=== PATIENT | male | born 1985 | race Caucasian/White ===

== ENCOUNTER 2022-07-15 04:01 | Inpatient (IN) | payer SELFPAY ==
[2022-07-15 06:22] LABS: Amphetamine Screen,Urine Not Detected (NotDetected); Benzodiazepines Screen,Urine Not Detected (NotDetected); Cocaine Screen,Urine Not Detected (NotDetected); Opiate Screen,Urine Not Detected (NotDetected); Phencyclidine Screen,Urine Not Detected (NotDetected); Tricyclic Antidepressant,Urine Not Detected (NotDetected); Urn Cannabinoid Scrn Not Detected (NotDetected)
--- NOTE | 2022-07-15 06:22 | ED ---
General Adult HPI - General Source: patient, police, RN notes reviewed, old records reviewed Mode of arrival: ambulatory <Kevin Post - Last Filed: 07/15/22 06:19> <Wilbert Dove - Last Filed: 07/15/22 14:57> - General Chief complaint: Psychiatric Symptoms Stated complaint: petition Time Seen by Provider: 07/15/22 04:25 - History of Present Illness Initial comments: 37-year-old male with need for mental health evaluation. Patient admits to alcohol consumption. Superficial laceration to the left forearm. He was found by police with a knife in his vehicle. He states he has some issues that he is dealing with but is unwilling to elaborate on this. (Kevin Post) - Related Data Home Medications Medication Instructions Recorded Confirmed No Known Home Medications 07/15/22 07/15/22 Allergies Allergy/AdvReac Type Severity Reaction Status Date / Time proparacaine AdvReac Swelling Verified 07/15/22 11:28 Review of Systems ROS Other: All systems not noted in ROS Statement are negative. <Kevin Post - Last Filed: 07/15/22 06:19> ROS Other: All systems not noted in ROS Statement are negative. <Wilbert Dove - Last Filed: 07/15/22 14:57> ROS Statement: Those systems with pertinent positive or pertinent negative responses have been documented in the HPI. Past Medical History Past Medical History: No Reported History History of Any Multi-Drug Resistant Organisms: None Reported Past Surgical History: No Surgical Hx Reported Past Psychological History: No Psychological Hx Reported Smoking Status: Current every day smoker Past Alcohol Use History: Daily Past Drug Use History: None Reported <Kevin Post - Last Filed: 07/15/22 06:19> General Exam General appearance: alert, in no apparent distress, appears intoxicated Head exam: Present: atraumatic, normocephalic Eye exam: Present: normal appearance, PERRL Respiratory exam: Present: normal lung sounds bilaterally. Absent: respiratory distress, wheezes, rales Cardiovascular Exam: Present: regular rate, normal rhythm Extremities exam: Present: other (abrasion left forearm) Neurological exam: Present: alert, oriented X3 Psychiatric exam: Present: depressed, flat affect, suicidal ideation Skin exam: Present: warm, dry, intact. Absent: cyanosis, diaphoretic <Kevin Post - Last Filed: 07/15/22 06:19> Course <Kevin Post - Last Filed: 07/15/22 06:19> Vital Signs 07/15/22 07/15/22 07/15/22 05:12 10:00 14:15 Temperature 98 F 98 F 98.4 F Pulse Rate 85 81 52 L Pulse Rate [ Right Sitting] Respiratory 18 18 18 Rate Blood Pressure 138/96 134/88 115/71 Blood Pressure [Left Arm Sitting] O2 Sat by Pulse 98 98 100 Oximetry 07/15/22 14:20 Temperature 97.7 F Pulse Rate Pulse Rate [ 66 Right Sitting] Respiratory 18 Rate Blood Pressure Blood Pressure 134/89 [Left Arm Sitting] O2 Sat by Pulse 95 Oximetry - Reevaluation(s) Reevaluation #1: 07/15/22 06:21 clear for eps at 9am (Kevin Post) Reevaluation #2: 07/15/22 0700 Signed out at shift change to Dr. Dove (Kevin Post) Medical Decision Making <Wilbert Dove - Last Filed: 07/15/22 14:57> - Medical Decision Making Patient was signed out to me pending sobriety and EPS evaluation. EPS evaluated the patient when he was sober. Determined he does meet inpatient psychiatric criteria. Patient will be admitted to the inpatient psychiatry unit in stable condition. (Wilbert Dove) - Lab Data Lab Results 07/15/22 07/15/22 Range/Units 05:17 13:16 Urine Opiates Screen Not Detected (NotDetected) Ur Oxycodone Screen Not Detected (NotDetected) Urine Methadone Screen Not Detected (NotDetected) Ur Propoxyphene Screen Not Detected (NotDetected) Ur Barbiturates Screen Not Detected (NotDetected) U Tricyclic Antidepress Not Detected (NotDetected) Ur Phencyclidine Scrn Not Detected (NotDetected) Ur Amphetamines Screen Not Detected (NotDetected) U Methamphetamines Scrn Not Detected (NotDetected) U Benzodiazepines Scrn Not Detected (NotDetected) Urine Cocaine Screen Not Detected (NotDetected) U Marijuana (THC) Screen Not Detected (NotDetected) Coronavirus (PCR) Not Detected (Not Detectd) Disposition <eKvin Post - Last Filed: 07/15/22 06:19> <Wilbert Dove - Last Filed: 07/15/22 14:57> Clinical Impression: Encounter for psychiatric assessment Disposition: ADMITTED IP TO THIS HOSP Condition: Stable
[2022-07-15 06:23] LABS: Barbiturate Screen,Urine Not Detected (NotDetected); Methadone Screen, Urine Not Detected (NotDetected); Oxycodone Screen, Urine Not Detected (NotDetected)
[2022-07-15] MEDS ORDERED: LORazepam 1 MG TAB PO PRN ×2 (14:25→20:00)
[2022-07-15] MEDS ORDERED: MAGNESIUM HYDROXIDE 2,400 MG/10 ML CUP PO PRN ×2 (14:25→20:00)
[2022-07-15] MEDS ORDERED: ACETAMINOPHEN TAB 325 MG TAB PO PRN ×2 (14:25→20:00)
[2022-07-15] MEDS ORDERED: MAG HYDROX/AL HYDROX/SIMETH 30 ML CUP PO PRN ×2 (14:25→20:00)
[2022-07-15] MEDS ORDERED: HALOPERIDOL LACTATE 5 MG/ML 1 ML VIAL IM PRN ×2 (14:25→20:00)
[2022-07-15] MEDS ORDERED: LORazepam 2 MG/ML INJ IM PRN (14:33)
[2022-07-15] MEDS ORDERED: haloperidoL 5 MG TAB PO PRN (14:34)
--- NOTE | 2022-07-15 15:27 | P.HP ---
Psychiatric H&P - . H&P Date: 07/15/22 History & Physical: Allergies Allergy/AdvReac Type Severity Reaction Status Date / Time proparacaine AdvReac Swelling Verified 07/15/22 11:28 Vital Signs Temp 97.7 F 07/15/22 14:20 Pulse 66 07/15/22 14:20 Resp 18 07/15/22 14:20 BP 134/89 07/15/22 14:20 Pulse Ox 95 07/15/22 14:20 FiO2 Intake & Output 07/14/22 07/15/22 07/15/22 18:59 06:59 18:59 Weight 54.431 kg 58.8 kg Laboratory Last Values Urine Opiates Screen Not Detected (NotDetected) 07/15/22 05:17 Ur Oxycodone Screen Not Detected (NotDetected) 07/15/22 05:17 Urine Methadone Screen Not Detected (NotDetected) 07/15/22 05:17 Ur Propoxyphene Screen Not Detected (NotDetected) 07/15/22 05:17 Ur Barbiturates Screen Not Detected (NotDetected) 07/15/22 05:17 U Tricyclic Antidepress Not Detected (NotDetected) 07/15/22 05:17 Ur Phencyclidine Scrn Not Detected (NotDetected) 07/15/22 05:17 Ur Amphetamines Screen Not Detected (NotDetected) 07/15/22 05:17 U Methamphetamines Scrn Not Detected (NotDetected) 07/15/22 05:17 U Benzodiazepines Scrn Not Detected (NotDetected) 07/15/22 05:17 Urine Cocaine Screen Not Detected (NotDetected) 07/15/22 05:17 U Marijuana (THC) Screen Not Detected (NotDetected) 07/15/22 05:17 Coronavirus (PCR) Not Detected (Not Detectd) 07/15/22 13:16 07/15/22 15:07 History of present illness: Patient said he had a bad day at work and so he went home and had couple of drinks. Then he had an argument with his mother following which he made a superficial scratch sean on his left forearm with a knife. Then he went back to work. He said the police arrived at work and brought him here for admission. He is working full-time and denies any ongoing mental health issues. He broke up from his fiance of 7 years after an argument 3 months ago and came to live with his mother for the last 3 months. Apparently he has been having some arguments and disagreements with his mother. Even though he denied all problems, he agrees that he gets irritable and angry at times. He also reports that he has been an emotional person all his life and m ay get upset angry and engage in self abusive behavior. He used to cut himself when he was growing up whenever he was upset. He is also quite emotional. He said he has some difficulty in sleeping well at night and agreed to take Seroquel 50 mg at bedtime. Previous psychiatric history/alcohol and drug abuse: He was treated as an outpatient for"depression"when his child as a he was 17 at the time apparently he was treated for until he was 18 with Depakote Trileptal and Zyprexa he did not take any of these medication since then. As noted earlier he used to cut himself on forearms on numerous locations whenever he felt angry or upset. He has 27 tattoos and 2 piercings. He has been drinking alcohol since age 16. He used to drink up to fifth and a half to 2 per day in the past and he had one DUI. These days he just drinks only here and there. He [facility] for [facility]. He was also in [facility] one week when he was charged with attempted murder and he agreed for domestic assault and got out early. Social history: He was raised well by his parents. He was not abused. He was home schooled. He went to work at the age of 14 and did not get his high school diploma. 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 Currently he lives with his mother and thinks he can go back to live with her after discharge. He was living with his fianc for 7 years and raised her 4 or 5 children as his own. Apparently she is dating her coworker and does not want to see the patient anymore. He was not in the service. Previous medical history: He denies any major physical problems and is not ALLERGIC to any medication. However the chart is flag for ALLERGY/adverse effects from proparacaine. Family history: He said his mother had heart attack and father had or has a pacemaker put in. Mental status examination:: This is a white ambulatory male with well maintained mustache and rick he. He has good hygiene. He was pleasant and cooperative initially. However when he was told that we cannot discharge him today he became irate, used curse words and said he is not going to eat anything while he is here. He did not show any psychomotor agitation or retardation initially. However when he came to know that he cannot leave today he became agitated and somewhat hostile. His speech has been spontaneous and goal-directed. Mood was calm and euthymic initially and became angry and hostile later. Affect is increased in range. Denies current suicide and homicide thoughts. Denies hallucinations and delusional thinking. He is well oriented with good memory concentration and general fund of knowledge. Diagnostic impression: 1. Borderline personality disorder. 2. Alcohol use disorder moderate to severe. Strengths: Has a job, has a place to live and apparently supportive family. Weakness: Impulsive acting out behavior, anger management problems, alcohol use disorder. Treatment plan: He will have physical examination. He agreed to take 50 mg of Seroquel at night to help him sleep better. He will receive supervision, milieu therapy, group therapy, individual therapy, occupational therapy and recreational therapy. Discharge with outpatient follow-up.
--- NOTE | 2022-07-15 16:03 | P.CONS ---
History of Present Illness - Reason for Consult Consult date: 07/15/22 - History of Present Illness 37-year-old male with no significant past medical history presents ED for behavioral disturbance. He is being admitted to mental health unit for further management of symptoms. [facility] been consulted for medical management of this patient. Patient reports cough productive of clear sputum that has been ongoing for many years. He reports that his "lungs were not inflated" at . He reports smoking 3 packs of cigarettes daily for many years. He was previously on inhalers which she has not used in many years. He denies any headache, lower extremity edema, nausea or vomiting, fever chills, chest pain, shortness of breath, palpitations, changes in urination or bowel habits. No changes in appetite or weight. He denies any dizziness, numbness/weakness/tingling of the extremities. Patient reports binge drinking at times. He denies any history of alcohol withdrawal. He denies any illicit drug use. General: non toxic, no distress, appears at stated age Derm: warm, dry, abrasion over the left forearm Head: atraumatic, normocephalic, symmetric Eyes: EOMI, no lid lag, anicteric sclera Mouth: no lip lesion, mucus membranes moist Cardiovascular: S1S2 reg, no murmur, positive posterior tibial pulse bilateral, Lungs: Decreased breath sounds bilateral, no rhonchi, no rales , no accessory muscle use Abdominal: soft, nontender to palpation, no guarding, no appreciable organomegaly Ext: no gross muscle atrophy, no edema, no contractures Neuro: CN II-XI grossly intact, no focal neuro deficits Psych: Alert, oriented, appropriate affect #Chronic bronchitis #History of alcohol abuse #Smoker Patient reports a chronic cough ongoing for multiple years. He does smoke 3 packs of cigarettes daily. His oxygenation is mid to high 90s on room air. He will need to follow-up with his PCP in the outpatient setting for further workup of his cough. Patient denies any history of alcohol withdrawal. Continue to monitor. Patient has been offered a nicotine patch. CBC, CMP, hemoglobin A1c, lipid panel, TSH ordered. Thank you for this consultation. Please call [facility] additional questions or concerns. Past Medical History Past Medical History: No Reported History History of Any Multi-Drug Resistant Organisms: None Reported Past Surgical History: No Surgical Hx Reported Past Psychological History: No Psychological Hx Reported Smoking Status: Current every day smoker Past Alcohol Use History: Daily Past Drug Use History: None Reported Medications and Allergies Home Medications Medication Instructions Recorded Confirmed Type No Known Home Medications 07/15/22 07/15/22 History Allergies Allergy/AdvReac Type Severity Reaction Status Date / Time proparacaine AdvReac Swelling Verified 07/15/22 11:28 Physical Exam Vitals: Vital Signs Temp Pulse Pulse Resp BP BP Pulse Ox 07/15/22 14:20 97.7 F 66 18 134/89 95 07/15/22 14:15 98.4 F 52 L 18 115/71 100 07/15/22 10:00 98 F 81 18 134/88 98 07/15/22 05:12 98 F 85 18 138/96 98 Intake and Output 07/15/22 07/15/22 07/15/22 06:59 14:59 22:59 Other: Weight 54.431 kg 58.8 kg
[2022-07-15] MEDS: QUEtiapine 50 MG TAB PO SCH (20:34)
[2022-07-16 07:11] LABS: Basophils # (A) 0.2 k/uL (0-0.2); Basophils % (A) 2 %; Eosinophils # (A) 0.4 k/uL (0-0.7); Eosinophils % (A) 4 %; HCT 50.4 % (39.0-53.0); HGB 16.9 gm/dL (13.0-17.5); Lymphocytes # (A) 3.6 k/uL (1.0-4.8); Lymphocytes % (A) 36 %; MCH 29.6 pg (25.0-35.0); MCHC 33.6 g/dL (31.0-37.0); MCV 88.1 fL (80.0-100.0); Mean Platelet Volume 8.8; Monocytes # (A) 0.4 k/uL (0-1.0); Monocytes % (A) 4 %; Neutrophils # (A) 5.3 k/uL (1.3-7.7); Neutrophils % (A) 53 %; Platelet Count 196 k/uL (150-450); RBC 5.72 m/uL (4.30-5.90); RDW 13.2 % (11.5-15.5); WBC 9.9 k/uL (3.8-10.6)
[2022-07-16 07:30] LABS: ALT 17 U/L (4-49); AST 22 U/L (17-59); African American GFR (CKD) >90 (>60 ml/min/1.73 sqM); Albumin 4.4 g/dL (3.5-5.0); Alkaline Phosphatase 66 U/L (38-126); Anion Gap 10 mmol/L; Blood Urea Nitrogen 8 mg/dL (9-20); Calcium 9.7 mg/dL (8.4-10.2); Carbon Dioxide 27 mmol/L (22-30); Chloride 104 mmol/L (98-107); Glucose 85 mg/dL (74-99); Non-African American GFR(CKD) >90 (>60 ml/min/1.73 sqM); Sodium 141 mmol/L (137-145); Total Bilirubin 1.2 mg/dL (0.2-1.3); Total Protein 6.7 g/dL (6.3-8.2)
[2022-07-16] MEDS: NICOTINE 14MG/24HR PATCH TRANSDERM SCH (08:55)
[2022-07-16] MEDS ORDERED: NICOTINE 14MG/24HR PATCH TRANSDERM SCH (09:00)
[2022-07-16 12:00] LABS: Chol/HDL Ratio 3.45 Ratio; LDL Cholesterol,Calculated 86.6 mg/dL (0.0-131.0)
[2022-07-16 12:50] VITALS: BMI 18.6
--- NOTE | 2022-07-16 15:15 | P.PN ---
Progress Note - Text Progress Note Date: 07/16/22 Interval History: Patient was seen bedside. He was sleeping but awoke upon arousal. He reports being frustrated with not being discharged home. Despite recent decompensation, patient is unable to convey any potential coping skills to prevent further decompensation or understanding of his mental health needs. He is currently resistant to discussing any form of treatment. He reports having taken Seroquel last night and denies any side effects or concerns. He is future oriented and would like to return back to work. He reports eating and sleeping well. He denies suicidal ideation and homicidal ideation. However, patient is noted to be minimizing his recent suicidal ideation and cutting his forearm. Mental Status Exam: General Appearance: Patient appears disheveled but stated age Behavior: Patient does not display any bizarre or agitated behaviors today. Not restless and psychomotor retardation Speech: Patient's speech is spontaneous and regular tone/volume Mood/Affect: Mood is irritable. Affect is mood-congruent Suicidality/Homicidality: Denies but patient had recent SI Perceptions: Denies AVH Though content/process: Linear and goal-directed Memory and concentration: Intact to interview Judgment and insight: Poor Assessment 1. Borderline personality disorder. 2. Alcohol use disorder moderate to severe. PLAN: -Patient is admitted under voluntary status to [facility]HU for stabilization of psychiatric symptoms and safety. Patient signed adult voluntary form and is placed in patient's chart. -Continue current medication management -Ativan and Haldol PRN for agitation/anxiety -Motivational interviewing for substance use -Internal Medicine consult to perform medical evaluation and physical. -SW on board for discharge planning. Encourage patient to participate in groups to work on coping skills.
[2022-07-16] MEDS: QUEtiapine 50 MG TAB PO SCH (20:47)
[2022-07-17] MEDS: NICOTINE 14MG/24HR PATCH TRANSDERM SCH (09:25)
--- NOTE | 2022-07-17 12:21 | P.PN ---
Progress Note - Text Progress Note Date: 07/17/22 Interval History: Patient was seen bedside. He was reading. Patient expresses frustration at not being discharged but is able to discuss that without being irritable. He describes various tattoos and the people that he had lost. Despite recent decompensation, patient is unable to convey any potential coping skills to prevent further decompensation or understanding of his mental health needs. He is currently resistant to discussing any form of treatment. He reports having taken Seroquel last night and denies any side effects or concerns. He is future oriented and would like to return back to work. He reports eating and sleeping well. He denies suicidal ideation and homicidal ideation. However, patient is noted to be minimizing his recent suicidal ideation and cutting his forearm. Mental Status Exam: General Appearance: Patient appears disheveled but stated age Behavior: Patient does not display any bizarre or agitated behaviors today. Not restless and psychomotor retardation Speech: Patient's speech is spontaneous and regular tone/volume Mood/Affect: Mood is irritable. Affect is mood-congruent Suicidality/Homicidality: Denies but patient had recent SI Perceptions: Denies AVH Though content/process: Linear and goal-directed Memory and concentration: Intact to interview Judgment and insight: Poor Assessment 1. Borderline personality disorder. 2. Alcohol use disorder moderate to severe. PLAN: -Patient is admitted under voluntary status to [facility] for stabilization of psychiatric symptoms and safety. Patient signed adult voluntary form and is placed in patient's chart. -Continue current medication management -Ativan and Haldol PRN for agitation/anxiety -Motivational interviewing for substance use -Internal Medicine consult to perform medical evaluation and physical. -SW on board for discharge planning. Encourage patient to participate in groups to work on coping skills.
[2022-07-17] MEDS: QUEtiapine 50 MG TAB PO SCH (20:55)
[2022-07-18 05:19] VITALS: BP 132/77; PULSE 71; RESP 18; TEMP 97.9
[2022-07-18] MEDS: NICOTINE 14MG/24HR PATCH TRANSDERM SCH (10:01)
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
== END 2022-07-18 12:37 | disposition home or self-care (01) | DRG 885 ==
LOC: EC 04:01 → 3MHU 14:18
PROVIDERS: ADMIT Psychiatry & Neurology Psychiatry; ATTEND Psychiatry & Neurology Psychiatry
DX: F39 Unspecified mood [affective] disorder (principal); F10.10 Alcohol abuse, uncomplicated; F17.210 Nicotine dependence, cigarettes, uncomplicated; F41.9 Anxiety disorder, unspecified; F60.3 Borderline personality disorder; G47.00 Insomnia, unspecified; S51.812A Laceration without foreign body of left forearm, initial encounter; X78.1XXA Intentional self-harm by knife, initial encounter; Z28.310 Unvaccinated for COVID-19; Z20.822 Contact with and (suspected) exposure to COVID-19; Z28.21 Immunization not carried out because of patient refusal; Z88.4 Allergy status to anesthetic agent; Z71.3 Dietary counseling and surveillance; Z79.899 Other long term (current) drug therapy; Z82.49 Family history of ischemic heart disease and other diseases of the circulatory system
CPT/HCPCS: 80053; 80061; 80306; 82075; 83036; 84443; 85025; 87635; 99284

== ENCOUNTER 2023-10-22 05:16 | Emergency (ER) | payer BC ==
[2023-10-22 05:28] VITALS: BP 118/78; PULSE 112; RESP 18; TEMP 98.7
--- NOTE | 2023-10-22 06:00 | ED ---
Lower Extremity Injury HPI - General Chief Complaint: Extremity Injury, Lower Stated Complaint: Right Ankle Injury Time Seen by Provider: 10/22/23 05:45 Source: patient Mode of arrival: wheelchair Limitations: no limitations - History of Present Illness MD Complaint: ankle injury Onset/Timin -: hour(s) Injury: Ankle: Right Type of Injury: inversion Place: street/outdoors Severity: moderate Improves With: nothing Worsens With: weight bearing Context: jumping Associated Symptoms: swelling, able to partially bear weight - Related Data Previous Rx's Medication Instructions Recorded Nicotine 14Mg/24Hr Patch [Habitrol] 1 patch TRANSDERM DAILY 14 Days 07/18/22 patch QUEtiapine [SEROquel] 50 mg PO HS 30 Days tab 07/18/22 Ibuprofen [Motrin] 800 mg PO Q8H PRN 7 Days #21 tab 08/31/22 Sulfamethox-Tmp 800-160Mg [Bactrim 2 tab PO Q12HR 14 Days #28 tab 08/31/22 DS 800-160 mg] Ibuprofen [Motrin] 600 mg PO Q8HR PRN #20 tab 10/22/23 Allergies Allergy/AdvReac Type Severity Reaction Status Date / Time proparacaine AdvReac Swelling Verified 08/31/22 08:17 Review of Systems ROS Statement: Those systems with pertinent positive or pertinent negative responses have been documented in the HPI. ROS Other: All systems not noted in ROS Statement are negative. Past Medical History Past Medical History: No Reported History History of Any Multi-Drug Resistant Organisms: None Reported Past Surgical History: No Surgical Hx Reported Past Anesthesia/Blood Transfusion Reactions: No Reported Reaction Past Psychological History: No Psychological Hx Reported Smoking Status: Current every day smoker Past Alcohol Use History: Occasional Past Drug Use History: None Reported General Exam Limitations: no limitations General appearance: alert, in no apparent distress Cardiovascular Exam: Present: other (Strong symmetric dorsalis pedis pulses. There is normal capillary refill throughout the foot.) Extremities exam: Present: tenderness, normal capillary refill. Absent: pedal edema, calf tenderness Right Knee exam: Present: normal inspection, full ROM. Absent: tenderness, swelling Lower Leg exam: Present: normal inspection, full ROM. Absent: tenderness, swe lling Ankle exam: Present: tenderness, swelling. Absent: abrasion, laceration, deformity, crepitus, dislocation, erythema, anterior draw sign Foot/Toe exam: Present: normal inspection, full ROM. Absent: tenderness, swelling, calcaneal tenderness, tenderness at base of 5th metatarsal Neurovascular tendon exam: Present: no vascular compromise. Absent: pulse deficit, abnormal cap refill, motor deficit, sensory deficit, tendon deficit, extremity cold to touch Neurological exam: Present: alert. Absent: motor sensory deficit Skin exam: Present: warm, dry, intact, normal color. Absent: rash Course Vital Signs 10/22/23 05:18 Temperature 98.7 F Pulse Rate 112 H Respiratory 18 Rate Blood Pressure 118/78 O2 Sat by Pulse 99 Oximetry Medical Decision Making - Medical Decision Making The patient had ankle x-rays which I interpreted as negative for acute fracture or dislocation. Was pt. sent in by a medical professional or institution ([facility] Palomares, HUMAN RESOURCE INTERN, urgent care, hospital, or [facility]...) When possible be specific @ -[No] Did you speak to anyone other than the patient for history (EMS, parent, family, police, friend...)? What history was obtained from this source @ -[No] Did you review nursing and triage notes (agree or disagree)? Why? @ -[I reviewed and agree with nursing and triage notes] Were old charts reviewed (outside hosp., previous admission, EMS record, old EKG, old radiological studies, urgent care reports/EKG's, [facility] records)? Report findings @ -[No old charts were reviewed] Differential Diagnosis (chest pain, altered mental status, abdominal pain women, abdominal pain men, vaginal bleeding, weakness, fever, dyspnea, syncope, headache, dizziness, GI bleed, back pain, seizure, CVA, palpatations, mental health, musculoskeletal)? @ -[Differential Musculoskeletal Muscular strain, contusion, ligament sprain, fracture, arthritis, septic arthritis, bursitis, cellulitis, muscle spasm, nerve compression, DVT, arterial occlusion, herpes zoster, electrolyte abnormality, tumor.... This is not meant to be in all inclusive list EKG interpreted by me (3pts min.). @ -[As above] X-rays interpreted by me (1pt min.). @ -[I interpreted as above CT interpreted by me (1pt min.). @ -[None done] U/S interpreted by me (1pt. min.). @ -[None done] What testing was considered but not performed or refused? (CT, X-rays, U/S, labs)? Why? @ -[None] What meds were considered but not given or refused? Why? @ -[None] Did you discuss the management of the patient with other professionals (prof hernandez i.e. , PA, HUMAN RESOURCE INTERN, lab, RT, psych nurse, licensed clinical social worker, industrial custodian, teacher, parachute/combatant diver officer, pillowcase cleaner)? Give summary @ -[No] Was smoking cessation discussed for >3mins.? @ -[No] Was critical care preformed (if so, how long)? @ -[No] Were there social determinants of health that impacted care today? How? (Homelessness, low income, unemployed, alcoholism, drug addiction, transportation, low edu. Level, literacy, decrease access to med. care, fci, rehab)? @ -[No] Was there de-escalation of care discussed even if they declined (Discuss DNR or withdrawal of care, Hospice)? DNR status @ -[No] What co-morbidities impacted this encounter? (DM, HTN, Smoking, COPD, CAD, Cancer, CVA, ARF, Chemo, Hep., AIDS, mental health diagnosis, sleep apnea, morbid obesity)? @ -[None] Was patient admitted / discharged? Hospital course, mention meds given and route, prescriptions, significant lab abnormalities, going to OR and other pertinent info. @ -[Patient is 38-year-old man with ankle injury. The x-rays do not reveal acute injury requiring intervention. We discussed the appropriate further care and follow-up including possibility of occult fracture requiring repeat x-rays in a week if not having expected improvement. Discussed return parameters as well. Undiagnosed new problem with uncertain prognosis? @ -[No] Drug Therapy requiring intensive monitoring for toxicity (Heparin, Nitro, Insulin, Cardizem)? @ -[No] Were any procedures done? @ -[No] Diagnosis/symptom? @ -[Acute ankle sprain Acute, or Chronic, or Acute on Chronic? @ -[Acute Uncomplicated (without systemic symptoms) or Complicated (systemic symptoms)? @ -[Uncomplicated Side effects of treatment? @ -[No] Exacerbation, Progression, or Severe Exacerbation? @ -[No] Poses a threat to life or bodily function? How? (Chest pain, [place], [place], pneumonia, PE, COPD, DKA, ARF, appy, cholecystitis, CVA, Diverticulitis, Homicidal, Suicidal, threat to staff... and all critical care pts) @ -[No] Disposition Clinical Impression: Right ankle sprain Disposition: HOME SELF-CARE Condition: Good Instructions (If sedation given, give patient instructions): Ankle Sprain (ED) Prescriptions: Ibuprofen [Motrin] 600 mg PO Q8HR PRN #20 tab PRN Reason: Pain Is patient prescribed a controlled substance at d/c from ED?: No Referrals: None,Stated [Primary Care Provider] - 1-2 days Kevin Bryant DO [Doctor of Osteopathic Medicine] - 1-2 days
--- NOTE | 2023-10-22 07:08 | XR ---
EXAMINATION TYPE: XR ankle complete RT DATE OF EXAM: 10/22/2023 5:36 AM CLINICAL INDICATION:Male, 38 years old with history of Pain; [facility] COMPARISON: None TECHNIQUE: XR ankle complete RT; ankle is imaged in frontal, lateral and oblique projections. FINDINGS: There is no evidence of acute osseous pathology. The joint spaces are well-preserved without evidenc e of subluxation or dislocation. Kager's fat pad is intact. Mild soft tissue swelling around the ankl e. No radiopaque foreign bodies are identified. Calcaneal Achilles enthesophyte formation. IMPRESSION: 1. No evidence of acute fracture. 2. Subcutaneous swelling around the ankle likely secondary to underlying soft tissue injury.
== END 2023-10-22 06:13 | disposition home or self-care (01) ==
LOC: EC 05:16
DX: S93.401A Sprain of unspecified ligament of right ankle, initial encounter (principal); F17.200 Nicotine dependence, unspecified, uncomplicated; Z88.8 Allergy status to other drugs, medicaments and biological substances; X50.1XXA Overexertion from prolonged static or awkward postures, initial encounter; Y93.39 Activity, other involving climbing, rappelling and jumping off; Y92.410 Unspecified street and highway as the place of occurrence of the external cause
CPT/HCPCS: 99283